=== PATIENT | female | born 1985 | race Caucasian/White ===

== ENCOUNTER → 2021-12-11 | Day surgery (SDC) | payer OTHER ==
[~2021-12-11] MED LIST: ALBUTEROL1.25 MG/3 INH; ATORVASTATIN CA10 MG PO; CYCLOBENZAPRINE10 MG PO; CYMBALTA 20 MG20 MG PO; FARXIGA5 MG PO; FEROSUL325 MG PO; FLUOXETINE HCL10 M1 PO; FREESTYLE FREE1 EAC1 MC; FREESTYLE LANC1 EACH MC; FUROSEMIDE20 MG PO; GABAPENTIN100 MG PO; JANUVIA100 MG PO; LEVOTHYROXINE100 MC2 PO; LISINOPRIL10 MG PO; METFORMIN HCL500 MG PO; NYAMYC60 GM EXT; ONDANSETRON HCL4 MG PO; POTASSIUM CHLO10 MEQ PO; VITAMIN D21250 MCG PO; VITAMIN D3125 MCG PO; ZOFRAN 4 MG TAB4 MG PO
[2021-12-11 08:00] LABS: HEMOGLOBIN 14.7 gm/dl (12.3-15.3); RED BLOOD COUNT 4.99 M/UL (4.00-5.10); WHITE BLOOD COUNT 4.7 K/UL (4.5-11.0)
[2021-12-12 07:12] LABS: HBSAG SCREEN Negative (Negative); HCV AB <0.1 (0.0-0.9); HEP A AB, IGM Negative (Negative); HEP B CORE AB, IGM Negative (Negative)
[2021-12-12 08:13] LABS: ALPHA-1-ANTITRYPSIN, SERUM 170 mg/dL (100-188); CERULOPLASMIN 22.5 mg/dL (19.0-39.0); FERRITIN 79 ng/mL (15-150); IMMUNOGLOBULIN G, QN, SERUM 1543 mg/dL (586-1602); IRON BIND.CAP.(TIBC) 302 ug/dL (250-450); IRON SATURATION 15 % (15-55); IRON, SERUM 45 ug/dL (27-159); UIBC 257 ug/dL (131-425)
[2021-12-12 14:14] LABS: ACTIN (SMOOTH MUSCLE) ANTIBODY 6 Units (0-19); MITOCHONDRIAL (M2) ANTIBODY <20.0 Units (0.0-20.0)
[2021-12-12 15:14] LABS: LIVER-KIDNEY MICROSOMAL AB 2.2 Units (0.0-20.0)
== END | disposition home or self-care (01) ==
LOC: OR 06:42
PROVIDERS: Internal Medicine Gastroenterology
DX: K76.6 Portal hypertension (principal); K31.89 Other diseases of stomach and duodenum; K75.81 Nonalcoholic steatohepatitis (NASH); J35.1 Hypertrophy of tonsils; K74.60 Unspecified cirrhosis of liver; K20.90 Esophagitis, unspecified without bleeding; R16.1 Splenomegaly, not elsewhere classified; R16.0 Hepatomegaly, not elsewhere classified; R79.89 Other specified abnormal findings of blood chemistry; E66.01 Morbid (severe) obesity due to excess calories; I10 Essential (primary) hypertension; E11.9 Type 2 diabetes mellitus without complications; E07.9 Disorder of thyroid, unspecified; Z88.6 Allergy status to analgesic agent; Z68.42 Body mass index [BMI] 45.0-49.9, adult; Z79.84 Long term (current) use of oral hypoglycemic drugs; Z79.899 Other long term (current) drug therapy
CPT/HCPCS: 80074; 80076; 82103; 82390; 82728; 82784; 82962; 83516; 83540; 83550; 84703; 85027; 86038; 86376; J2250; J2704; J7040